=== PATIENT | female | born 1990 | race Two or more races ===

== ENCOUNTER 2019-03-08 10:57 | Emergency (ER) | payer MEDICAID ==
[~2019-03-08] VITALS: Ht 154.9 cm; Wt 75.0 kg
[2019-03-08 11:15] VITALS: BP 129/82
== END 2019-03-08 13:46 | disposition home or self-care (01) ==
LOC: ER 10:57
DX: S80.12XA Contusion of left lower leg, initial encounter (principal); S13.9XXA Sprain of joints and ligaments of unspecified parts of neck, initial encounter; W22.8XXA Striking against or struck by other objects, initial encounter; Y93.89 Activity, other specified; Y92.89 Other specified places as the place of occurrence of the external cause; Y99.8 Other external cause status
CPT/HCPCS: 73590; 99283; Z7610